=== PATIENT | male | born 1975 | race Caucasian/White ===

== ENCOUNTER 2020-10-05 11:59 | Day surgery (SDC) | payer BC ==
[2020-10-04 10:21] VITALS: BMI 31.8
[~2020-10-05 11:59] MED LIST: ceFAZolin 3 GM in SODIUM CHLORIDE 0.9% 100 ML IVPB PRN
[2020-10-05] MEDS ORDERED: LACTATED RINGERS 1,000 ML IV ONE ×3 (13:22→16:07)
[2020-10-05] MEDS ORDERED: ONDANSETRON 4 MG/2 ML VIAL ONE (13:29)
[2020-10-05] MEDS ORDERED: ONDANSETRON 4 MG/2 ML VIAL IVP ONE (13:35)
[2020-10-05] MEDS ORDERED: DEXAMETHASONE SOD PHOSPHATE 4 MG/ML 1 ML VIAL IVP ONE (13:36)
[2020-10-05] MEDS ORDERED: MIDAZOLAM 2 MG/2 ML VIAL IV ONE (13:41)
[2020-10-05] MEDS ORDERED: fentaNYL (PF) 50 MCG/ML 2 ML AMP IVP ONE ×2 (13:54→14:02)
[2020-10-05] MEDS ORDERED: ROPIVACAINE 5 MG/ML 30 ML VIAL ONE (15:00)
[2020-10-05] MEDS ORDERED: PROPOFOL 10 MG/ML 20 ML VIAL IV ONE (15:00)
[2020-10-05] MEDS ORDERED: MIDAZOLAM 2 MG/2 ML VIAL ONE (15:00)
[2020-10-05] MEDS ORDERED: PHENYLEPHRINE-0.9% NACL SYG 1,000 MCG/10 ML SYRINGE ONE (15:00)
[2020-10-05] MEDS ORDERED: DEXAMETHASONE SOD PHOSPHATE 4 MG/ML 1 ML VIAL ONE (15:00)
[2020-10-05] MEDS ORDERED: SUCCINYLCHOLINE CHLORIDE 100 MG/5 ML SYR IV ONE (15:00)
[2020-10-05] MEDS ORDERED: fentaNYL (PF) 50 MCG/ML 2 ML AMP ONE (15:00)
[2020-10-05] MEDS ORDERED: LIDOCAINE 1% INJ 10MG/ML (20 ML MDV) ONE (15:00)
[2020-10-05 17:11] VITALS: TEMP 97.6
[2020-10-05] MEDS ORDERED: HYDROmorphone 1 MG/ML 1 ML SYRINGE IVP ONE ×4 (17:21→17:36)
--- NOTE | 2020-10-05 17:29 | P.OP ---
Preoperative Diagnosis: 1. Bimalleolar fracture left ankle 2. Ruptured syndesmosis left ankle Postoperative Diagnosis: 1. Displaced Left lateral malleolar fracture 2. Ruptured syndesmosis left ankle 3. Ruptured deltoid ligament left ankle Procedure(s) Performed: 1. Open reduction with internal fixation left lateral malleolar fracture 2. Open reduction and internal fixation of syndesmosis left ankle 3. Open repair deltoid ligament left ankle Implants: 1 Arthrex precontoured lateral malleolar plate 3.5 mm locking and nonlocking screws, 3.0 cancellous screws, 1 Arthrex tight rope, 2 Arthrex fiberTak anchors Anesthesia: BLANCA Surgeon: Khang Ziegler Estimated Blood Loss (ml): 10 Pathology: none sent Condition: stable Disposition: PACU Indications for Procedure: Severely displaced ankle fracture with possible syndesmosis disruption Operative Findings: No evidence of medial malleolar fracture however the deltoid ligament showed a complete rupture Description of Procedure: Prior to the patient being brought to the operating room anesthesia administered nerve block under ultrasonic guidance and mild sedation. The patient was brought into the operating room and placed on table in the supine position. Timeout was taken to infirm correct patient identifiers, correct procedure, and correct site of surgery. When all members in the room were in agreement the patient was placed under general anesthetic. A well-padded tourniquet was placed on the patient's left thigh. The left leg was then prepped and draped in the usual manner. The left leg was exsanguinated with an Esmarch bandage and the tourniquet inflated to 250 mmHg Attention was first directed over the medial malleolus were curved incision was made and deepened down to the subcutaneous tissue careful to identify, avoid, and retract any neurovascular structures and cauterize any bleeding vessels. Initial observation show that there was complete rupture of the deltoid ligament with lateral translation of the talus and the ankle mortise. Further inspection revealed that there was no medial malleolar fracture. Fluoroscopy was utilized to confirm this finding. Therefore the determination was made to perform a deltoid ligament repair. Any nonviable soft tissues removed at the distal aspect of the medial malleolus. A Game Moderator was used to remove the cortical bone in the tip of the medial malleolus to help facilitate soft tissue re-adhesion. 2 Arthrex fiber James anchors were inserted into the tip of the medial malleolus utilizing the proper technique. Utilizing the suture attached to the anchor the deltoid ligament was captured and removed from the medial gutter of the ankle joint. This allowed the ankle joint to be reduced. Another drill hole was made for a 4.75 swivel lock anchor into the medial tibia superior to the ankle joint but inferior so that it would not disrupt placing any syndesmotic repair. The drill hole was then tapped the 4 strands of suture from the 2 fiber Josh anchors were then fed through the eyelet of the 4.75 anchor which was then aligned with the drill hole in the tibia with maximum tension of the suture in the ankle and maximum inversion, the anchor was impacted into the tibia and advanced to lock the suture in place. Once that was completed the deltoid ligament was essentially repaired it was stable and there was no medial joint space gapping or eversion stress noted on fluoroscopy. The rest of the deltoid ligament was repaired with 0 Vicryl. The wound is irrigated with antibiotic saline. Subcutaneous closure was done with 4-0 Monocryl. Skin closure done with stainless triston. At that point staff in the room then placed a wedge underneath the left hip without breaking sterile technique so that the left leg be internally rotated. Then attention directed over the lateral malleolus where a linear incision was made directly over the bone. It was deepened down to the saphenous tissue careful to identify, avoid, and retract any neurovascular structures and cauterize any bleeding vessels. Dissection was continued down to level of the periosteum overlying the fibula. The fracture fragments were identified and so that the interposing soft tissue and hematoma could be removed. Then the area was irrigated with antibiotic saline. Bone reduction forceps was then utilized to derotate and bring the fibular fracture back out to length until it could be realigned. Once it appeared to be realigned that was clamped in place and then checked under fluoroscopy. Fluoroscopy confirmed that the reduction was near anatomic with appropriate length and no asymmetry of the ankle joint mortise. A 3.5 mm fully threaded cortical screw was inserted from an anterior to posterior direction perpendicular to the fracture line, utilizing standard technique. There was good compression noted across the fracture and it was also stable. Fluoroscopy confirmed the proper placement of the screw. An Arthrex precontoured lateral malleolar plate was then positioned and adjusted under fluoroscopy until it was in the right area. Temporary fixation was performed keep it in place. 3.5 locking screws were placed in the holes proximal to the fracture: Total of 3 inserted. 3.0 cancellous screws were inserted in the distal holes. All holes were drilled and measured under direct fluoroscopic visualization so that the drill didn't enter the lateral gutter. 30 cancellous screws were placed in the distal drill holes. Temporary fixation was removed and final fluoroscopic imaging revealed a realigned lateral malleolar fracture with proper placement of all hardware. Then the appropriate size drill for the insertion of the Arthrex tight rope was inserted in the proper hole in the plate in a lateral to medial direction parallel to the joint surface. The drill was advanced until the medial tibial cortex was just breached and then the drill was removed. The tight rope anchor was inserted through the drill hole until the medial button was completely exposing the medial aspect the button was then released from the salvage clerk and tension placed on the suture until the buttonlike flat against the medial side of the tibia. Once it was in proper position, reduction forceps were placed across the joint to reduce the syndesmosis. The clamp was tightened while holding the ankle maximally dorsiflexed. Once that was reduced the lateral suture button for the tight rope was then tensioned back against the plate as much as possible. Once that was completed the bone reduction forceps were removed and stress was placed on the ankle to make sure that there was no gapping of the syndesmosis or any asymmetries in the ankle joint. There was no instability noted. The lateral wound is irrigated with antibiotic saline. The deep closure was done with 0 Vicryl. Subcu closure done with 4-0 Monocryl. Skin closure with stainless triston. Arthrex jumpstart dressing was applied over both incisions, and then a bulky dry dressings applied to the left ankle. The tourniquet was released and capillary refill return to all digits on the left foot. The patient was then placed in a well-padded, well molded, plaster posterior mold/sugar tong splint. Once applied ankle was held in neutral position until d ried. Anesthesia was then reversed and the patient was taken recovery with vital signs stable.
[2020-10-05] MEDS ORDERED: MEPERIDINE 50 MG/ML SYRINGE IVP ONE (17:49)
[2020-10-05] MEDS: oxyCODONE-APAP 7.5-325MG 1 EACH TAB ONE ×2 (18:15→18:18)
[2020-10-05 18:33] VITALS: RESP 16
[2020-10-05 18:35] VITALS: BP 138/78; PULSE 80
--- NOTE | 2020-10-05 19:05 | P.ANPRN ---
Procedure Note - Anesthesia - Nerve Block Performed Left Popliteal Single Time Out Performed: Yes Date of Procedure: 10/05/20 Procedure Start Time: 13:40 Procedure Stop Time: 13:47 Location of Patient: PreOp Indication: Acute Post-Operative Pain, Requested by Surgeon Sedation Type: Sedate with meaningful contact maintained Preparation: Sterile Prep Position: Right Lateral Needle Types: Pajunk Needle Gauge: 21 Ultrasound used to visualize needle placement: Yes Ultrasound used to observe medication spread: Yes Blood Aspirated: No Pain Paresthesia on Injection Noted: No Resistance on Injection: Normal Image Stored and Saved: Yes Events: Uneventful and Well Tolerated (Ropivacaine 0.5% with dexamethasone 4 mg)
--- NOTE | 2020-10-05 19:07 | P.ANPRN ---
Procedure Note - Anesthesia - Nerve Block Performed Left Saphenous Nerve Block Single Time Out Performed: Yes Date of Procedure: 10/05/20 Procedure Start Time: 13:48 Procedure Stop Time: 13:51 Location of Patient: PreOp Indication: Acute Post-Operative Pain, Requested by Surgeon Sedation Type: Sedate with meaningful contact maintained Preparation: Sterile Prep Position: Supine Needle Types: Pajunk Needle Gauge: 21 Ultrasound used to visualize needle placement: No Ultrasound used to observe medication spread: No Resistance on Injection: Normal Image Stored and Saved: Yes Events: Uneventful and Well Tolerated (Ropivacaine 0.5% 20 mL was used)
--- NOTE | 2020-10-06 07:56 | FL ---
Fluoroscopy INDICATION: Pain FINDINGS: Fluoroscopy time: 30 seconds. Images obtained: 2. IMPRESSIONS: 1. Documentation of fluoroscopy.
--- NOTE | 2020-10-06 07:56 | XR ---
Fluoroscopy INDICATION: Pain FINDINGS: Fluoroscopy time: 0 seconds. Images obtained: 2. IMPRESSIONS: 1. Documentation of fluoroscopy.
== END 2020-10-05 16:45 | disposition home or self-care (01) ==
LOC: OR 11:59
PROVIDERS: ATTEND Podiatrist
DX: S82.62XA Displaced fracture of lateral malleolus of left fibula, initial encounter for closed fracture (principal); S93.432A Sprain of tibiofibular ligament of left ankle, initial encounter; S93.422A Sprain of deltoid ligament of left ankle, initial encounter; E03.9 Hypothyroidism, unspecified; F17.210 Nicotine dependence, cigarettes, uncomplicated; G62.9 Polyneuropathy, unspecified; K21.9 Gastro-esophageal reflux disease without esophagitis; Z85.71 Personal history of Hodgkin lymphoma; Z79.899 Other long term (current) drug therapy; Z79.891 Long term (current) use of opiate analgesic; Z79.890 Hormone replacement therapy; Z97.3 Presence of spectacles and contact lenses; Z98.890 Other specified postprocedural states; Z98.52 Vasectomy status; W18.42XA Slipping, tripping and stumbling without falling due to stepping into hole or opening, initial encounter; Y92.017 Garden or yard in single-family (private) house as the place of occurrence of the external cause
CPT/HCPCS: 27792; 27695; 64447; 64445; 76942; 73600; C1713 ×2; J2250; J1100; J2175; J0690; J2405; J2001; J3010; J1170; J2795; J2370; J0330; J2704; 64450